=== PATIENT | female | born 1965 | race African-American/Black ===

== ENCOUNTER → 2017-01-15 | Outpatient (CLI) | payer BC ==
--- NOTE | 2017-01-15 15:01 | KCIC ---
DEXA scan Indication: Postmenopausal. Comparison is made with prior DEXA scan from 01/12/2012. Bone mineral analysis of the lumbar spine and left hip was performed. The bone mineral density of the lumbar spine from L1-L4 is 0.943 with a T-score of -0.9. This compares with 1.031 and -0.1 on prior. The bone mineral density of the left femoral neck is 0.906 with a T-score -0.3. This compares with 0.992 and 0.4 on prior. Impression: Normal bone mineral density of the lumbar spine and left femoral neck. Electronically signed by: Kelvin Quinteros MD (Jan 15, 2017 15:00:00)
== END | disposition home or self-care (01) ==
LOC: KCIC DEXA 13:09
PROVIDERS: ATTEND Internal Medicine Hematology & Oncology
DX: Z78.0 Asymptomatic menopausal state (principal); C50.412 Malignant neoplasm of upper-outer quadrant of left female breast
CPT/HCPCS: 77080

== ENCOUNTER → 2017-05-07 | Outpatient (CLI) | payer BC ==
--- NOTE | 2017-05-10 08:58 | RAD ---
DATE: 05/07/2017 EXAM: DIGITAL SCREEN RT W/CAD HISTORY: Screening COMPARISON: 04/17/2016 This study was interpreted with the benefit of Computerized Aided Detection (CAD). FINDINGS: Breast Density: SCATTERED The breast parenchyma shows scattered fibroglandular densities. Breast parenchyma level B. Routine and implant displacement views of the right breast were obtained. The history of left breast malignancy with subsequent mastectomy is noted. No mass or suspect group of calcifications is seen in the right breast. There has not been a significant change in appearance of the breasts compared to the previous exam IMPRESSION: Benign findings] BI-RADS CATEGORY: 2 BENIGN FINDING(S) RECOMMENDED FOLLOW-UP: 12M 12 MONTH FOLLOW-UP PQRS compliance statement: Patient information was entered into a reminder system with a target due date 05/07/2018 for the next mammogram. Mammography is a sensitive method for finding small breast cancers, but it does not detect them all and is not a substitute for careful clinical examination. A negative mammogram does not negate a clinically suspicious finding and should not result in delay in biopsying a clinically suspicious abnormality. "Our facility is accredited by the [employer] Mammography [employer]."
== END | disposition home or self-care (01) ==
LOC: MAMMO 15:01
PROVIDERS: ATTEND Internal Medicine Hematology & Oncology
DX: Z12.31 Encounter for screening mammogram for malignant neoplasm of breast (principal)
CPT/HCPCS: G0202; 77067

== ENCOUNTER → 2019-08-14 | Day surgery (SDC) | payer OTHER ==
[~2019-08-14] MED LIST: HYDROmorphone 2 MG/ML VIAL IV PRN; IV RINGERS,LACTATED 1000ML 1,000 ML IV SCH; LIDOCAINE 1% PF 2 ML VIAL. ID PRN; LIDOCAINE 2% PF 5 ML VIAL. ONE; MORPHINE SULFATE 2 MG/ML VIAL. IV PRN; ONDANSETRON PF 4 MG/2 ML VIAL. IV PRN; PROCHLORPERAZINE 10 MG/2 ML VIAL. IV PRN; PROPOFOL 20 ML IV ONE; PROPOFOL 40 ML IV ONE; fentaNYL PF VIAL 100 MCG/2 ML VIAL IV PRN
--- NOTE | 2019-08-14 14:00 | PDOC4 ---
PROCEDURE Procedure Colonoscopy with biopsies Indication: JERI/dysplasia surveillance/last 2016 Meds: per NON DESTRUCTIVE TESTING SCIENTIST Findings: MELISSA: normal --'Scope advanced to cecum. Mucosa from cecum to splenic flexure grossly normal. Granularity from proximal descending through sigmoid with sparing of rectum. --a few small diverticula were noted in the ascending colon. --Small IH's were seen. Random biopsies were taken from cecum/ascending, transverse, descending, sigmoid and rectum. Fabrizio. well. IMP: JERI, some activity in left colon, mild. Diverticulosis. REC: Await biopsies Continue home meds, diet. F/u in 2 weeks. Barring issues with biopsies, repeat exam in 2 years. OSVALDO FINN MD Aug 14, 2019 14:00
[2019-08-14 14:26] VITALS: BP 108/59
--- NOTE | 2019-08-16 16:06 | PATHOLOGY ---
[facility] Accession Number: [id number] . 01 Material submitted: . PART A: cecum - CECUM AND ASCENDING COLON BIOPSY. Modifiers: ascending PART B: colon - TRANSVERSE COLON BIOPSY. Modifiers: transverse PART C: colon - DESCENDING COLON BIOPSY. Modifiers: descending PART D: colon - SIGMOID COLON BIOPSY. Modifiers: sigmoid PART E: rectum - RECTAL BIOPSY . 01 Clinical history: . UC . 02 Diagnosis: A. Colonic mucosa, cecum and ascending colon biopsies: - Segments of colonic mucosa showing no evidence of active chronic colitis or dysplasia. . B. Colonic mucosa, transverse colon biopsies: - Segments of colonic mucosa showing no evidence of active chronic colitis or dysplasia. . C. Colonic mucosa, descending colon biopsies: - Segments of colonic mucosa showing mild to focal moderate active chronic colitis without granulomas or specific features. . D. Colonic mucosa, sigmoid colon biopsies: - Segments of colonic mucosa showing mild to moderate active chronic colitis without granulomas or specific features. . E. Colorectal biopsies, rectum: - Segments of rectal mucosa showing focal mild active chronic colitis without granulomas or specific features. [facility] 08/16/2019 1025 Local . 02 Comment: Sections of the cecum, ascending colon, and transverse colon biopsies appear similar and reveal segments of colonic mucosa which appear histologically normal and show no evidence of an active chronic colitis or dysplasia. Sections of the descending and sigmoid colon biopsies reveal segments of colonic mucosa which show a mild to moderate active chronic colitis with acute cryptitis, crypt abscesses, and focal crypt architectural distortion. There are no granulomas or specific features. The findings are compatible with idiopathic chronic inflammatory bowel disease and are consistent with ulcerative colitis. There is no dysplasia or evidence of malignancy. Sections of the rectal biopsy reveal multiple segments of rectal mucosa. Several of these segments appear histologically normal. A few of the segments show a mild active chronic colitis without granulomas or specific features. There is no evidence of dysplasia. (JPM/db; 08/16/2019) . 02 Electronically signed: . Ramón Bajwa MD, Pathologist NPI- [id number] . 01 Gross description: . A. The specimen is received in formalin, labeled "Stampley, Yvonne, cecum and ascending colon BX", are several irregular fragments of brooks soft tissue measuring 0.7 x 0.5 x 0.1 cm in aggregate. Entirely submitted in A1. . B. The specimen is received in formalin, labeled "Stampley, Yvonne, transverse colon BX", several irregular fragments of brooks soft tissue measuring 0.5 x 0.5 x 0.1 cm in aggregate. Entirely submitted in B1. . C. The specimen is received in formalin, labeled "Stampley, Yvonne, descending colon BX", are few irregular fragments of brooks soft tissue measuring 0.4 x 0.4 x 0.1 cm in aggregate. Entirely submitted in C1. . D. The specimen is received in formalin, labeled "Stampley, Yvonne, sigmoid colon BX", are few irregular fragments of brooks soft tissue measuring 0.5 x 0.3 x 0.1 cm in aggregate. Entirely submitted in D1. . E. The specimen is received in formalin, labeled "Stampley, Yvonne, rectal BX", are few irregular fragments of brooks soft tissue measuring 0.4 x 0.4 x 0.1 cm in aggregate. Entirely submitted in E1. ([facility]; 08/15/2019) [facility] 08/15/2019 1554 Local . 02 Pathologist provided ICD-10: K52.9 . 02 CPT . 939241, 086975, 064973, [id number], [id number] Specimen Comment: A courtesy copy of this report has been sent to [phone], [phone] Specimen Comment: [id number] Specimen Comment: Report sent to / DR GRACE Specimen Comment: A duplicate report has been generated due to demographic updates. Performed at: 01 [facility] [address], [place] [id number] MD Austin Cuello MD Phone: [phone] Performed at: [address] [facility] [address] [place], [place] [id number] MD Ramón Bajwa MD Phone: [phone]
== END ==
LOC: ENDOS 11:39
PROVIDERS: ATTEND Internal Medicine Gastroenterology
DX: Z12.11 Encounter for screening for malignant neoplasm of colon (principal); K57.30 Diverticulosis of large intestine without perforation or abscess without bleeding; K51.90 Ulcerative colitis, unspecified, without complications; K64.0 First degree hemorrhoids; F15.90 Other stimulant use, unspecified, uncomplicated; I10 Essential (primary) hypertension; E66.9 Obesity, unspecified; Z68.35 Body mass index [BMI] 35.0-35.9, adult; Z85.3 Personal history of malignant neoplasm of breast; Z72.89 Other problems related to lifestyle
CPT/HCPCS: 45380; 88305; J2001; J2704

== ENCOUNTER → 2020-06-15 | Outpatient (CLI) | payer OTHER ==
[2019-08-14 14:26] VITALS: BP 108/59
--- NOTE | 2020-06-18 09:02 | RAD ---
DATE: 06/15/2020 8:55 AM EXAM: MAMMO BARRY SCREEN RT HISTORY: Screening. Personal history of left breast cancer 2006, status post left mastectomy. COMPARISON: 06/01/2019 and 05/31/2018 CC and MLO views of the right breast were performed. Right breast tomosynthesis was performed in implant displaced CC and MLO projections. This study was interpreted with the benefit of Computerized Aided Detection (CAD). FINDINGS: Breast Density: SCATTERED The breast parenchyma shows scattered fibroglandular densities. Breast parenchyma level B Subpectoral silicone implant is partially imaged. Asymmetry superficial to the implant on the MLO view needs additional imaging. Recommend repeat right MLO view with nipple in profile, and a full-field right ML view (without implant displacement). Targeted ultrasound may be helpful. IMPRESSION: Right breast asymmetry, findings for which additional imaging is advised. BI-RADS CATEGORY: 0 INCOMPLETE: NEEDS ADDITIONAL IMAGING EVALUATION AND/OR PRIOR MAMMOGRAMS FOR COMPARISON. RECOMMENDED FOLLOW-UP: ADD ADDITIONAL IMAGING The patient will be contacted to return for additional imaging and a supplemental report will follow. PQRS compliance statement: Patient information was entered into a reminder system with a target due date for the next mammogram. Mammography is a sensitive method for finding small breast cancers, but it does not detect them all and is not a substitute for careful clinical examination. A negative mammogram does not negate a clinically suspicious finding and should not result in delay in biopsying a clinically suspicious abnormality. "Our facility is accredited by the [employer] Mammography [employer]."
== END | disposition home or self-care (01) ==
LOC: MAMMO 08:50
PROVIDERS: ATTEND Internal Medicine Hematology & Oncology
DX: Z12.31 Encounter for screening mammogram for malignant neoplasm of breast (principal); Z90.12 Acquired absence of left breast and nipple
CPT/HCPCS: 77061

== ENCOUNTER → 2020-07-15 | Outpatient (CLI) | payer OTHER ==
[2019-08-14 14:26] VITALS: BP 108/59
--- NOTE | 2020-07-15 13:32 | RAD ---
Right digital diagnostic mammogram. INDICATION: Screening recall for asymmetry in the inferior right breast. Patient is a 55-year-old woman with a history of left mastectomy for breast cancer. COMPARISON: 06/01/2019 TECHNIQUE: CC and MLO full field right 2-D digital mammograms of the right breast were obtained. Computer aided detection was utilized. FINDINGS: Scattered fibroglandular densities. The asymmetry in the inferior right breast persists on additional mammographic views and needs additional imaging with targeted right breast ultrasound which will be performed and reported separately later the same day. Subpectoral breast implant is redemonstrated. IMPRESSION: Incomplete. An asymmetry in the inferior right breast superficial to the breast implant and pectoralis muscle needs additional imaging with targeted right breast ultrasound. This will be performed reported later the same day. BI-RADS Category 0 Incomplete. Needs additional imaging Recommend targeted right breast ultrasound Electronically signed by: Li Odom MD (07/15/2020 1:29 PM) [id number]
--- NOTE | 2020-07-15 16:28 | RAD ---
Limited right breast ultrasound. INDICATION: Screening recall for asymmetry in the inferior right breast status post left mastectomy for breast cancer many years ago. COMPARISON: Earlier same day right digital diagnostic mammogram, screening mammogram of 06/15/2020 at 05/31/2018 TECHNIQUE: Targeted ultrasound of the inferior right breast along the inframammary fold was performed. FINDINGS: Sonographically benign 4.5 mm cyst is identified in the right 7:00 position 11 cm from the nipple that likely correlates with the mammographic finding recalled from screening. This is probably benign and is favored to represent a noncalcified oil cyst. Six-month follow-up right mammogram is recommended in further evaluation. IMPRESSION: Probably benign cyst in the inferior right breast at the 7:00 position 11 cm from the nipple likely correlates with the asymmetry recalled from screening. Recommend a six-month follow-up right diagnostic mammogram, with possible ultrasound. Discussed with patient. BI-RADS Category 3 Probably benign findings Recommend 6 month follow-up right diagnostic mammogram with possible ultrasound. Electronically signed by: Li Odom MD (07/15/2020 4:25 PM) [id number]
== END ==
LOC: MAMMO 12:47
PROVIDERS: ATTEND Internal Medicine Hematology & Oncology
DX: N60.01 Solitary cyst of right breast (principal)
CPT/HCPCS: 76641; 77065

== ENCOUNTER → 2021-01-08 | Outpatient (CLI) | payer OTHER ==
[2019-08-14 14:26] VITALS: BP 108/59
--- NOTE | 2021-01-08 14:33 | RAD ---
DATE: For 04/22/2021. EXAM: MAMMO BARRY DIAG RT, ULTRASOUND BREAST RIGHT HISTORY: 6 month follow-up. COMPARISON: Bilateral mammogram 06/15/2020. Diagnostic right mammogram and breast ultrasound 07/15/2020. CAD was utilized. FINDINGS: The breast parenchyma shows scattered fibroglandular densities. There are no dominant suspicious microcalcifications or evidence of architectural distortion. There is a nodular asymmetry of the inferior right breast at posterior depth adjacent to the implant, only seen on the implant included MLO view. Appearance is similar to the June 2020 mammogram. Real-time ultrasound imaging of the right breast is performed. At the 7:00 position 11 cm from the nipple the previously seen tiny cyst is probably still present as seen on image 7. There has been a change in this area and there are several elongated cystic structures measuring about 2 x 1 cm. Finding may be due to fibrocystic change. This area is immediately adjacent to the implant. There are no abnormal axillary lymph nodes. IMPRESSION: On mammogram there is relatively stable nodular asymmetry of the inferior right breast at posterior depth adjacent to the implant. On ultrasound at the 7:00 position 11 cm from the nipple immediately adjacent to the implant there are new elongated cystic structures that may be due to fibrocystic change. Ultrasound follow-up in 3 months is recommended. BI-RADS CATEGORY: 3 PROBABLE BENIGN-SHORT TERM F/U RECOMMENDED FOLLOW-UP: 3M 3 MONTH FOLLOW-UP PQRS compliance statement: Patient information was entered into a reminder system with a target due date for the next mammogram. Mammography is a sensitive method for finding small breast cancers, but it does not detect them all and is not a substitute for careful clinical examination. A negative mammogram does not negate a clinically suspicious finding and should not result in delay in biopsying a clinically suspicious abnormality. "Our facility is accredited by the [employer] Mammography Program."
== END ==
LOC: MAMMO 12:32
PROVIDERS: ATTEND Internal Medicine Hematology & Oncology
DX: N64.89 Other specified disorders of breast (principal)
CPT/HCPCS: 76641; 77065; G0279; 77061

== ENCOUNTER → 2021-04-11 | Outpatient (CLI) | payer OTHER ==
[2019-08-14 14:26] VITALS: BP 108/59
--- NOTE | 2021-04-11 16:41 | RAD ---
US BREAST RT 04/11/2021 1:45 PM INDICATION: Left breast cancer. Right breast mass. COMPARISON: Right breast ultrasound 01/08/2021, mammogram from 01/08/2021 TECHNIQUE: Targeted sonographic evaluation of the right breast was performed. FINDINGS: Superficial to the right breast prosthesis at the 7:00 position, 11 cm from the nipple there is a 9 x 6 x 1.5 cm hypoechoic mass without definite posterior acoustic characteristics, although this is betancourt ited by the breast prosthesis. Margins are circumscribed with mixed internal echogenicity. There may be mixed solid and cystic component. Findings are suspicious for malignancy given patient's history o f left breast cancer. Further evaluation with ultrasound-guided core needle biopsy is recommended. IMPRESSION: 1. Suspicious findings in the right breast at the 7:00 position, 11 cm from the nipple. Ultrasound gu ided core needle biopsy is recommended. BI-RADS category: 4; Suspicious Recommendations: Tissue sampling is recommended. Electronically signed by: Negra Workman MD (04/11/2021 4:38 PM) [id number]
== END ==
LOC: US 12:59
PROVIDERS: ATTEND Internal Medicine Hematology & Oncology
DX: C50.412 Malignant neoplasm of upper-outer quadrant of left female breast (principal); Z98.82 Breast implant status
CPT/HCPCS: 76641

== ENCOUNTER → 2021-04-24 | Outpatient (CLI) | payer OTHER ==
[2019-08-14 14:26] VITALS: BP 108/59
[~2021-04-24] MED LIST changes: -HYDROmorphone 2 MG/ML VIAL IV PRN; -IV RINGERS,LACTATED 1000ML 1,000 ML IV SCH; +LIDOCAINE 1% Multi-Dose 20 ML VIAL. INJ ONE; -LIDOCAINE 1% PF 2 ML VIAL. ID PRN; -LIDOCAINE 2% PF 5 ML VIAL. ONE; -MORPHINE SULFATE 2 MG/ML VIAL. IV PRN; -ONDANSETRON PF 4 MG/2 ML VIAL. IV PRN; -PROCHLORPERAZINE 10 MG/2 ML VIAL. IV PRN; -PROPOFOL 20 ML IV ONE; -PROPOFOL 40 ML IV ONE; -fentaNYL PF VIAL 100 MCG/2 ML VIAL IV PRN
--- NOTE | 2021-04-24 17:06 | RAD ---
EXAM: US BREAST RT 04/24/2021 12:14 PM CLINICAL INDICATION: Right breast mass COMPARISON: 04/11/2021, 01/08/2021, 07/15/2020, 06/15/2020, 06/01/2019, 05/31/2018, 05/07/2017 TECHNIQUE: Grayscale and color Doppler ultrasound images of the right breast were obtained. FINDINGS: The patient presented for biopsy of right breast mass. Upon imaging the right breast prior to the planned biopsy, there is no discrete mass identified at 7:00 11 cm from the nipple in the are a of concern on prior ultrasound. There is some dense tissue seen in this area which likely correlate s with the mammographic findings and appears to have been present over multiple years on mammogram, b est seen on MLO view at posterior depth. IMPRESSION: No definite mass is seen at 7:00 11 cm from the nipple to target for ultrasound-guided bi opsy. The questioned abnormality on ultrasound and mammogram is most likely an island of dense breast tissue. This was discussed with the patient, as well as the option of proceeding with an attempted b iopsy or six-month follow-up mammogram and ultrasound. She will is in agreement with six-month follow -up exam. BI-RADS 3-probably benign. Recommend follow-up right breast mammogram and ultrasound in 6 months. Electronically signed by: Sadia Claudio MD (04/24/2021 5:03 PM) [id number]
== END ==
LOC: US 12:19
PROVIDERS: ATTEND Internal Medicine Hematology & Oncology
DX: C50.412 Malignant neoplasm of upper-outer quadrant of left female breast (principal)
CPT/HCPCS: 76641

== ENCOUNTER → 2021-10-20 | Outpatient (CLI) | payer OTHER ==
[2019-08-14 14:26] VITALS: BP 108/59
--- NOTE | 2021-10-20 11:01 | RAD ---
PROCEDURE: MG DIAGNOSTICUNILAT MAMMO HISTORY: The patient is 56 years old and is seen for Reason: SHORT TERM FOLLOW UP / Spl. Instructions : / History: . COMPARISON: April 24, 2021, April 11, 2021, January 08, 2021, July 15, 2020 and June 15, 2020 TECHNIQUE: CC and MLO views of the right breast were obtained. Images were processed by the [employer] computer-aided detection system. DENSITY: There are scattered fibroglandular densities. FINDINGS: Decreased previously discussed asymmetry within the posterior inferior right breast along the implant . No new asymmetry in, mass or suspicious microcalcification. IMPRESSION: Decreased right posterior inferior breast asymmetry along the implant. Recommend return t o annual screening. Recommend annual screening mammograms per [employer] guidelines. She will be due in one year. BI-RADS category 2 Benign Patient entered into a reminder system for annual screening mammogram. Electronically signed by: Jamar Allison DO (10/20/2021 10:59 AM) [id number]
== END ==
LOC: MAMMO 10:30
PROVIDERS: ATTEND Internal Medicine Hematology & Oncology
DX: R92.8 Other abnormal and inconclusive findings on diagnostic imaging of breast (principal)
CPT/HCPCS: 77065